=== PATIENT | female | born 1965 | race Caucasian/White ===

== ENCOUNTER 2018-11-10 20:17 | Emergency (ER) | payer MEDICAID, OTHER ==
[~2018-11-10] VITALS: Ht 172.7 cm; Wt 52.0 kg
--- NOTE | 2018-11-10 20:55 | NUR ---
FIRST CONTACT WITH PT. PT SITTING UP IN [facility], AWAKE/ALERT, PARTICIPATING IN ERP INITIAL ASSESSMENT. PT REPORTS WORSENING DIZZINESS W/ POSITION CHANGES X TODAY. "IT MADE ME SO DIZZY I THREW UP AT WORK" "I JUST NEED TO BE ABLE TO GO BACK TO WORK". HX OF POSITIONAL VERTIGO W/ SINUS CONGESTION. PT DENIES CP/BROUSSARD/SOB/FEVER/EAR PAIN. GROSS NEURO INTACT. BP/SPO2/ECG MONITORING IN PLACE. NSR ON MONITOR.
[2018-11-10] MEDS ORDERED: MECLIZINE CHEWABLE 25 MG TAB PO ONE (21:00)
[2018-11-10] MEDS ORDERED: MECLIZINE CHEWABLE 25 MG TAB ONE (21:02)
--- NOTE | 2018-11-10 21:05 | NUR ---
PT MEDICATED PER EMAR FOR DIZZINESS. PT REFUSING BLOOD DRAW D/T "NEEDLE PHOBIA". ERP AWARE.
--- NOTE | 2018-11-10 21:26 | NUR ---
PT REPORTS SIGNIFICANT IMPROVEMENT IN DIZZINESS WITH MEDICATIONS. POC IS DC. PT OFF MONITORING AND ASKED TO DRESS. DAUGHTER AT BEDSIDE. AWAITING DC INSTRUCTIONS.
--- NOTE | 2018-11-10 21:36 | NUR ---
DC EDUCATION PROVIDED, PT DEMONSTRATES UNDERSTANDING. PT AMBULATED STEADILY TO DC WITH RN AND DAUGHTER WO CO DIZZINESS/NAUSEA. DAUGHTER TO TRANSPORT PT HOME.
[2018-11-10 21:37] VITALS: BP 115/60
== END 2018-11-10 21:39 | disposition home or self-care (01) ==
LOC: ED 21:09
DX: H81.11 Benign paroxysmal vertigo, right ear (principal); H81.399 Other peripheral vertigo, unspecified ear; R11.2 Nausea with vomiting, unspecified; F17.210 Nicotine dependence, cigarettes, uncomplicated
CPT/HCPCS: 93005; 99283